=== PATIENT | male | born 1990 | race Asian ===

== ENCOUNTER 2017-07-26 19:18 | Emergency (ER) | payer MEDICAID ==
[~2017-07-26] VITALS: Ht 180.3 cm; Wt 65.8 kg
[2017-07-26] MEDS ORDERED: ONDANSETRON HCL 4 MG/2 ML VIAL IV ONE (21:45)
[2017-07-26] MEDS ORDERED: MORPHINE SULFATE 4 MG/ML SYRG IV ONE (21:45)
[2017-07-26] MEDS ORDERED: ETOMIDATE (2MG/ML) 20ML VIAL IV ONE (22:30)
[2017-07-27 00:30] VITALS: BP 143/74
== END 2017-07-27 01:01 | disposition home or self-care (01) ==
LOC: ER 19:18
DX: S43.015A Anterior dislocation of left humerus, initial encounter (principal); Z88.1 Allergy status to other antibiotic agents; W17.89XA Other fall from one level to another, initial encounter; Y93.44 Activity, trampolining; Y92.89 Other specified places as the place of occurrence of the external cause; Y99.8 Other external cause status
CPT/HCPCS: 23650; 73020; 73030; 96374; 96375; 99152; 99285; J2270; J2405; J7030

== ENCOUNTER 2018-01-13 18:17 | Emergency (ER) | payer SELFPAY ==
[~2018-01-13] VITALS: Ht 180.3 cm; Wt 65.8 kg
[2018-01-13 18:40] VITALS: BP 114/68
[2018-01-13] MEDS ORDERED: KETOROLAC TROMETH 60MG/2ML VIAL IM ONE (19:00)
[2018-01-13] MEDS ORDERED: METHOCARBAMOL 500 MG TAB PO ONE (19:00)
== END 2018-01-13 19:10 | disposition home or self-care (01) ==
LOC: ER 18:17 → EDBD 18:17 → ER 19:10
DX: S00.83XA Contusion of other part of head, initial encounter (principal); Z88.0 Allergy status to penicillin; Z88.1 Allergy status to other antibiotic agents; V47.0XXA Car driver injured in collision with fixed or stationary object in nontraffic accident, initial encounter; Y93.89 Activity, other specified; Y99.8 Other external cause status; Y92.488 Other paved roadways as the place of occurrence of the external cause
CPT/HCPCS: 96372; 99283; J1885

== ENCOUNTER 2019-01-24 11:05 | Emergency (ER) | payer SELFPAY ==
[~2019-01-24] VITALS: Ht 180.3 cm; Wt 72.6 kg
[2019-01-24] MEDS ORDERED: IBUPROFEN 600 MG TAB PO ONE (11:30)
[2019-01-24 13:56] VITALS: BP 120/73
== END 2019-01-24 14:06 ==
LOC: ER 11:05
DX: S40.012A Contusion of left shoulder, initial encounter (principal); S00.81XA Abrasion of other part of head, initial encounter; F17.210 Nicotine dependence, cigarettes, uncomplicated; F12.10 Cannabis abuse, uncomplicated; F11.10 Opioid abuse, uncomplicated; Z88.0 Allergy status to penicillin; Z88.1 Allergy status to other antibiotic agents; Y08.89XA Assault by other specified means, initial encounter; Y93.89 Activity, other specified; Y92.89 Other specified places as the place of occurrence of the external cause; Y99.8 Other external cause status
CPT/HCPCS: 73030